=== PATIENT | female | born 1990 | race Asian ===

== ENCOUNTER 2016-11-06 20:22 | Emergency (ER) | payer OTHER ==
[2016-11-06 20:28] VITALS: BP 111/81; PULSE 98; RESP 14; TEMP 100.4; O2SAT 96
--- NOTE | 2016-11-06 21:02 | EDPHY ---
H & P Stated Complaint: fever, "bump" on r wrist, r leg Time Seen by Provider: 11/06/16 20:35 HPI/ROS: Chief complaint: Fever, rash History of present illness: This is a 26-year-old female presents to the emergency department for evaluation of fever and rash. Patient reports the onset of fever over the last 1-2 days. She has noted associated rash over this time. She is noted to bumps, 1 on her arm and 1 on her leg. States symptoms have been persistent. She denies precipitating factors. She denies alleviating factors. She denies other associated signs or symptoms including no cold symptoms. She has talked with her mother, she does not believe she has ever had chickenpox or had the chickenpox vaccination, she does believe all of her other childhood immunizations are up-to-date. Review of systems: A 10 point review of systems was obtained and other than described above was negative - Personal History LMP (Females 10-55): Now Current Tetanus/Diphtheria Vaccine: Unsure - Medical/Surgical History Hx Asthma: No Hx Chronic Respiratory Disease: No Hx Diabetes: No Hx Cardiac Disease: No Hx Renal Disease: No Hx Cirrhosis: No Hx Alcoholism: No Hx HIV/AIDS: No Hx Splenectomy or Spleen Trauma: No Other PMH: PMHx: denies. PSHx: denies - Social History Smoking Status: Never smoked - Physical Exam Exam: General Appearance: Alert, nontoxic. Eyes: Pupils equal and round no injection. ENT:Tympanic membranes, external auditory canals, external ears and surrounding soft tissue including over the mastoids are unremarkable. Nasopharynx is not injected. There is no rhinorrhea. Oropharynx is not injected. There is no edema. There is no exudate. There is no asymmetry. The uvula is midline. No elevation of the tongue. There is no hoarseness, no drooling, no trismus, no stridor. Respiratory: Chest is non tender, lungs are clear to auscultation. Cardiac: regular rate and rhythm Musculoskeletal: Neck is supple and non tender. Extremities have full range of motion and are non tender. Skin: 2 large vesicles on erythematous bases 1 on the right arm and 1 on the right leg. No pustules. No petechiae. No other lesions noted. Constitutional: Initial Vital Signs Temperature (C) 38 C 11/06/16 20:24 Heart Rate 98 11/06/16 20:24 Respiratory Rate 14 11/06/16 20:24 Blood Pressure 111/81 H 11/06/16 20:24 O2 Sat (%) 96 11/06/16 20:24 O2 Delivery Mode Room Air Allergies/Adverse Reactions: No Known Allergies Allergy (Unverified 11/06/16 20:24) Home Medications: Medication Instructions Recorded NK [No Known Home Meds] 11/06/16 Medical Decision Making ED Course/Re-evaluation: Patient is seen in conjunction with my secondary supervising physician Dr. Cassie Yin. Patient presents to the emergency department for fever and a rash. She is nontoxic. She only has 2 lesions although they are vasicular in nature with an erythematous base. I have discussed with patient it is not clear as to the exact cause of the symptoms given her limited findings. Certainly this could be chickenpox given she does not believe she has ever had it. However I discussed multiple other potential etiologies. I believe she is safe for discharge home. 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 Return precautions are given. Patient voiced understanding and agreement with plan. Differential Diagnosis: Included but not limited to viral exanthem, molluscum contagiosum, chickenpox, shingles Departure - Departure Disposition: Home, Routine, Self-Care Clinical Impression: Rash Condition: Good Instructions: Acute Rash (ED) Additional Instructions: Follow-up with [facility] tomorrow for recheck You can use [id number] Tylenol as directed as needed for fever and discomfort If symptoms worsen or new symptoms develop return to the emergency room for recheck Referrals: NONE *PRIMARY CARE P,. [Primary Care Provider] - As per Instructions [facility],. [Clinic] - As per Instructions
== END 2016-11-06 21:08 | disposition home or self-care (01) ==
DX: R21 Rash and other nonspecific skin eruption (principal)

== ENCOUNTER 2018-10-22 19:59 | Emergency (ER) | payer OTHER | END 2018-10-22 20:45 | disposition home or self-care (01) ==